=== PATIENT | female | born 1965 | race Caucasian/White ===

== ENCOUNTER → 2019-04-15 13:53 | Outpatient (CLI) | payer BC, SELFPAY ==
--- NOTE | ~2019-04-15 | MM_ITS ---
EXAMINATION: MM screening [facility] w miesha HISTORY: Screening mammogram TECHNIQUE: Craniocaudal and mediolateral oblique 3-D tomosynthesis images were obtained and synthetic 2-D images were generated. CAD analysis was submitted and interpreted. COMPARISON: 02/25/2018, 11/07/2016 bilateral digital screening mammogram examinations 10/31/2015 diagnostic right digital mammogram and limited right breast ultrasound 10/18/2015 bilateral digital screening mammogram BREAST PARENCHYMAL COMPOSITION: There are scattered areas of fibroglandular density. FINDINGS: There is a stable circumscribed 10 x 7.5 x 6 mm lobular opacity in the inferior subareolar area of the right breast, previously documented on 10/31/2015 as cluster of cysts.. There is no evidence of suspicious mass, calcification, or architectural distortion to suggest malign yaakov in either breast. There has been no suspicious interval change. IMPRESSION: 1. No mammographic evidence of malignancy. 2. Recommend routine screening mammography in one year. BI-RADS Category 2: Benign finding(s). Reviewed, dictated and finalized at location A. [employer]ADER
== END ==
PROVIDERS: PCP Family Medicine; Visit Provider Obstetrics & Gynecology
DX: Z12.31 Encounter for screening mammogram for malignant neoplasm of breast (principal)
CPT/HCPCS: 77063; 77067

== ENCOUNTER 2020-04-25 11:29 | Outpatient (CLI) | payer OTHER, SELFPAY ==
--- NOTE | ~2020-04-25 | MM_ITS ---
EXAMINATION: MM screening [facility] BI w miesha HISTORY: Screening TECHNIQUE: Craniocaudal and mediolateral oblique 3-D tomosynthesis images were obtained and synthetic 2-D images were generated. CAD analysis was submitted and interpreted. COMPARISON: Comparison to multiple prior studies sequentially, with oldest reviewed study dated 09/2015. BREAST PARENCHYMAL COMPOSITION: There are scattered areas of fibroglandular density. FINDINGS: Focal subareolar asymmetry has diminished in size since prior studies. This was previously characterized as a cluster of microcysts on ultrasound dated 10/31/2015. There is no evidence of suspi cious mass, calcification, or architectural distortion to suggest malignancy in either breast. There has been no suspicious interval change. IMPRESSION: 1. No mammographic evidence of malignancy. 2. Recommend routine screening mammography in one year. BI-RADS Category 2: Benign finding(s). Reviewed, dictated and finalized at location A.
== END 2020-04-25 11:30 | disposition home or self-care (01) ==
LOC: ANHIMG 11:32
PROVIDERS: PCP Family Medicine; Visit Provider Obstetrics & Gynecology
DX: Z12.31 Encounter for screening mammogram for malignant neoplasm of breast (principal)
CPT/HCPCS: 77063; 77067

== ENCOUNTER → 2021-07-09 12:34 | Outpatient (CLI) | payer OTHER, SELFPAY ==
--- NOTE | ~2021-07-09 | MM_ITS ---
EXAMINATION: MM screening [facility] w miesha HISTORY: Screening mammogram TECHNIQUE: Craniocaudal and mediolateral oblique 3-D tomosynthesis images were obtained and synthetic 2-D images were generated. CAD analysis was submitted and interpreted. COMPARISON: 04/25/2020, 04/15/2019, 02/25/2018 bilateral screening mammogram examinations BREAST PARENCHYMAL COMPOSITION: There are scattered areas of fibroglandular density. FINDINGS: Circumscribed 4.8 x 6 mm low-density opacity is noted in the lower right subareolar area, n ot significantly changed compared to prior examinations. There is no evidence of suspicious mass, tammi cification, or architectural distortion to suggest malignancy in either breast. There has been no jorge picious interval change. IMPRESSION: 1. No mammographic evidence of malignancy. 2. Recommend routine screening mammography in one year. BI-RADS Category 2: Benign finding(s). Reviewed, dictated and finalized at location A.
== END ==
PROVIDERS: PCP Family Medicine; Visit Provider Family Medicine
DX: Z12.31 Encounter for screening mammogram for malignant neoplasm of breast (principal)
CPT/HCPCS: 77063; 77067

== ENCOUNTER → 2023-03-25 12:26 | Outpatient (CLI) | payer BC, SELFPAY ==
--- NOTE | ~2023-03-25 | MM_ITS ---
EXAMINATION: MM screening [facility] w miesha HISTORY: Screening mammogram TECHNIQUE: Craniocaudal and mediolateral oblique 3-D tomosynthesis images were obtained and synthetic 2-D images were generated. CAD analysis was submitted and interpreted. COMPARISON: 07/09/2021, 04/25/2020, 04/15/2019 bilateral screening mammogram examinations BREAST PARENCHYMAL COMPOSITION: There are scattered areas of fibroglandular density. FINDINGS: There is no evidence of suspicious mass, calcification, or architectural distortion to sugg est malignancy in either breast. There has been no suspicious interval change. IMPRESSION: 1. No mammographic evidence of malignancy. 2. Recommend routine screening mammography in one year. BI-RADS Category 1: Negative Reviewed, dictated and finalized at location B. [employer] OFFICER
== END ==
PROVIDERS: PCP Family Medicine; Visit Provider Obstetrics & Gynecology
DX: Z12.31 Encounter for screening mammogram for malignant neoplasm of breast (principal)
CPT/HCPCS: 77063; 77067

== ENCOUNTER → 2023-03-25 12:29 | Outpatient (CLI) | payer BC, SELFPAY ==
--- NOTE | ~2023-03-25 | XR_ITS ---
XR sacroiliac joints min 3V DATE: 03/25/2023 12:55 INDICATION: Sciatica TECHNIQUE: AP and bilateral oblique views COMPARISON: None FINDINGS: Normal alignment at the sacroiliac joints. No fracture or dislocation, erosive change or an kylosis. IMPRESSION: Negative Reviewed, dictated and finalized at Location A. Reviewed, dictated and finalized at location B. IRONER IMPRESSION: Negative
--- NOTE | ~2023-03-25 | XR_ITS ---
XR lumbar spine min 4V DATE: 03/25/2023 12:55 INDICATION: Sciatica TECHNIQUE: AP, bilateral oblique, lateral and coned lateral lumbosacral views COMPARISON: None FINDINGS: Mild thoracolumbar levoscoliosis. No fracture or bone destruction, spondylolysis or spondylolisthesis. The lumbar pedicles are intact. There is minimal degenerative spurring of the lumbar vertebrae. Lumbar levels interspaces are well pr eserved. There is degenerative change at the apophyseal joints. No spondylolysis or spondylolisthesis . The sacroiliac joints are intact. There is a prominent amount of fecal material throughout much of the colon. IMPRESSION: Mild thoracolumbar levoscoliosis Minimal degenerative change Reviewed, dictated and finalized at location B. [employer]
== END ==
PROVIDERS: PCP Physician Assistant; Visit Provider Physician Assistant
DX: M54.30 Sciatica, unspecified side (principal); M41.85 Other forms of scoliosis, thoracolumbar region
CPT/HCPCS: 72110; 72202